=== PATIENT | female | born 1990 | race Caucasian/White ===

== ENCOUNTER 2017-11-03 04:12 | Emergency (ER) | payer OTHER ==
[~2017-11-03] VITALS: Ht 162.6 cm; Wt 59.0 kg
[~2017-11-03 04:12] MED LIST: HYDROCORTISONE30 G9 RECTAL; MULTIVITAMINS1 EAC7 PO; NAPROSYN500 MG PO; TRAMADOL 50 MG50 MG PO; TRI-SPRINTEC1 EACH PO
[2017-11-03] MEDS ORDERED: NORCO 5-325 TA1 EACH PO (06:55)
[2017-11-03] MEDS ORDERED: KEFLEX500 M1 PO (06:55)
[2017-11-03 07:25] VITALS: BP 124/79
== END 2017-11-03 07:27 | disposition home or self-care (01) ==
LOC: ER 04:12
DX: S81.812A Laceration without foreign body, left lower leg, initial encounter (principal); F10.129 Alcohol abuse with intoxication, unspecified; F17.210 Nicotine dependence, cigarettes, uncomplicated; Z88.1 Allergy status to other antibiotic agents; Z88.8 Allergy status to other drugs, medicaments and biological substances; W07.XXXA Fall from chair, initial encounter; Y93.89 Activity, other specified; Y92.89 Other specified places as the place of occurrence of the external cause; Y99.8 Other external cause status

== ENCOUNTER 2018-12-13 22:12 | Emergency (ER) | payer BC ==
[~2018-12-13] VITALS: Ht 162.6 cm; Wt 59.0 kg
[~2018-12-13 22:12] MED LIST changes: +KEFLEX500 M1 PO; +NORCO 5-325 TA1 EACH PO
[2018-12-13 23:38] VITALS: BP 133/91
--- NOTE | 2018-12-14 07:58 | EKG ---
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
== END 2018-12-13 23:40 | disposition home or self-care (01) ==
LOC: ER 22:12
DX: F15.180 Other stimulant abuse with stimulant-induced anxiety disorder (principal); F17.210 Nicotine dependence, cigarettes, uncomplicated; Z88.1 Allergy status to other antibiotic agents; Z88.8 Allergy status to other drugs, medicaments and biological substances